=== PATIENT | female | born 1950 | race Caucasian/White ===

== ENCOUNTER 2019-10-01 10:52 | Emergency (ER) | payer MEDICARE ==
[~2019-10-01] VITALS: Ht 165.1 cm; Wt 102.0 kg
[2019-10-01 12:02] LABS: BASO # 0.1 x10^3/uL (0.0-0.2); BASO % 1 % (0-3); EOS # 0.1 x10^3/uL (0.0-0.7); EOS % 2 % (0-3); HEMOGLOBIN 12.1 g/dL (12.0-15.5); LYMPH # 2.3 x10^3/uL (1.0-4.8); LYMPH % 30 % (24-48); MEAN CORPUSCULAR HEMOGLOBIN 29 pg (25-35); MEAN CORPUSCULAR HGB CONC 34 g/dL (31-37); MEAN CORPUSCULAR VOLUME 88 fL (79-100); MONO # 0.6 x10^3/uL (0.0-1.1); MONO % 8 % (0-9); NEUT # 4.5 x10^3/uL (1.8-7.7); NEUT % 59 % (31-73); PLATELET COUNT 292 x10^3/uL (140-400); RED CELL DISTRIBUTION WIDTH 14.4 % (11.5-14.5); WHITE BLOOD COUNT 7.6 x10^3/uL (4.0-11.0)
[2019-10-01 12:09] LABS: CALCIUM 9.1 mg/dL (8.5-10.1); CREATININE 0.8 mg/dL (0.6-1.0); GFR 70.9
[2019-10-01 12:16] LABS: ALBUMIN 3.4 g/dL (3.4-5.0); ALBUMIN/GLOBULIN RATIO 0.9 (1.0-1.7); TOTAL BILIRUBIN 0.3 mg/dL (0.2-1.0)
--- NOTE | 2019-10-01 12:58 | PHYS DOC ---
Past Medical History Past Medical History: Hypertension Past Surgical History: Cholecystectomy Smoking Status: Never Smoker Alcohol Use: None General Adult EDM: Chief Complaint: FLANK PAIN HPI: HPI: Patient is a 68 year old female who presents to ER today for evaluation of left lower abdominal pain started 2 days ago. Patient said the pain is dull aching in nature, worse when she bent or twisted her lower back. Patient denies any back pain. Patient denies any fever, no nausea vomiting. Patient denies any urinary symptoms, no blood in her urine. Patient denies any fever. Review of Systems: Review of Systems: Constitutional: Denies fever or chills. [] Eyes: Denies change in visual acuity. [] HENT: Denies nasal congestion or sore throat. [] Respiratory: Denies cough or shortness of breath. [] Cardiovascular: Denies chest pain or edema. [] GI: Positive for left lower abdominal pain, no nausea vomiting. No diarrhea.] : Denies dysuria. [] Musculoskeletal: Denies back pain or joint pain. [] Integument: Denies rash. [] Neurologic: Denies headache, focal weakness or sensory changes. [] Endocrine: Denies polyuria or polydipsia. [] Lymphatic: Denies swollen glands. [] Psychiatric: Denies depression or anxiety. [] Heart Score: Risk Factors: Risk Factors: DM, Current or recent (<one month) smoker, HTN, HLP, family history of CAD, obesity. Risk Scores: Score 0 - 3: 2.5% MACE over next 6 weeks - Discharge Home Score 4 - 6: 20.3% MACE over next 6 weeks - Admit for Clinical Observation Score 7 - 10: 72.7% MACE over next 6 weeks - Early Invasive Strategies Allergies: Allergies: Allergies Coded Allergies Type Severity Reaction Last Updated Verified No Known Drug Allergies 10/01/19 No Physical Exam: PE: Constitutional: Well developed, well nourished, no acute distress, non-toxic appearance. [] HENT: Normocephalic, atraumatic, bilateral external ears normal, oropharynx moist, no oral exudates, nose normal. [] Eyes: PERRLA, EOMI, conjunctiva normal, no discharge. [] Neck: Normal range of motion, no tenderness, supple, no stridor. [] Cardiovascular:Heart rate regular rhythm, no murmur [] Lungs & Thorax: Bilateral breath sounds clear to auscultation [] Abdomen: Bowel sounds normal, soft, there is tenderness to palpation in left lower quadrant abdominal area, no rebound, no guarding., no masses, no pulsatile masses. [] Skin: Warm, dry, no erythema, no rash. [] Back: No tenderness, no CVA tenderness. [] Extremities: No tenderness, no cyanosis, no clubbing, ROM intact, no edema. [] Neurologic: Alert and oriented X 3, normal motor function, normal sensory funct ion, no focal deficits noted. [] Psychologic: Affect normal, judgement normal, mood normal. [] Current Patient Data: Labs: Laboratory Tests Test 10/01/19 11:50 White Blood Count 7.6 x10^3/uL (4.0-11.0) Red Blood Count 4.10 x10^6/uL (3.50-5.40) Hemoglobin 12.1 g/dL (12.0-15.5) Hematocrit 36.0 % (36.0-47.0) Mean Corpuscular Volume 88 fL (79-100) Mean Corpuscular Hemoglobin 29 pg (25-35) Mean Corpuscular Hemoglobin Concent 34 g/dL (31-37) Red Cell Distribution Width 14.4 % (11.5-14.5) Platelet Count 292 x10^3/uL (140-400) Neutrophils (%) (Auto) 59 % (31-73) Lymphocytes (%) (Auto) 30 % (24-48) Monocytes (%) (Auto) 8 % (0-9) Eosinophils (%) (Auto) 2 % (0-3) Basophils (%) (Auto) 1 % (0-3) Neutrophils # (Auto) 4.5 x10^3/uL (1.8-7.7) Lymphocytes # (Auto) 2.3 x10^3/uL (1.0-4.8) Monocytes # (Auto) 0.6 x10^3/uL (0.0-1.1) Eosinophils # (Auto) 0.1 x10^3/uL (0.0-0.7) Basophils # (Auto) 0.1 x10^3/uL (0.0-0.2) Sodium Level 138 mmol/L (136-145) Potassium Level 4.0 mmol/L (3.5-5.1) Chloride Level 102 mmol/L (98-107) Carbon Dioxide Level 26 mmol/L (21-32) Anion Gap 10 (6-14) Blood Urea Nitrogen 19 mg/dL (7-20) Creatinine 0.8 mg/dL (0.6-1.0) Estimated GFR (Cockcroft-Gault) 70.9 BUN/Creatinine Ratio 24 (6-20) H Glucose Level 125 mg/dL (70-99) H Calcium Level 9.1 mg/dL (8.5-10.1) Total Bilirubin 0.3 mg/dL (0.2-1.0) Aspartate Amino Transferase (AST) 18 U/L (15-37) Alanine Aminotransferase (ALT) 26 U/L (14-59) Alkaline Phosphatase 53 U/L (46-116) Total Protein 7.0 g/dL (6.4-8.2) Albumin 3.4 g/dL (3.4-5.0) Albumin/Globulin Ratio 0.9 (1.0-1.7) L Laboratory Tests 10/01/19 11:50 Laboratory Tests 10/01/19 11:50 Vital Signs: Vital Signs Date Time Temp Pulse Resp B/P (MAP) Pulse Ox O2 Delivery O2 Flow Rate FiO2 10/01/19 11:05 98.1 87 16 175/77 (109) 97 Room Air 98.1 EKG: EKG: [] Radiology/Procedures: Radiology/Procedures: [][facility] [address] [place] [address] IMAGING REPORT Signed PATIENT: RIZWANA RODRIGEZ ACCOUNT: [id number] : 1950 LOCATION: ER AGE: 68 SEX: F EXAM STATUS: REG ER ORD. PHYSICIAN: SUNITA CORRIGAN DO REASON: left lower abdominal pain PROCEDURE: CT ABD PELV W/ IV CONTRST ONLY CT abdomen and pelvis with contrast History: Left lower abdominal pain Technique: After the administration of intravenous contrast, CT imaging was performed of the abdomen and pelvis. No oral contrast was given as per request. Multiplanar images are reviewed. Exposure: One or more of the following individualized dose reduction techniques were utilized for this examination: 1. Automated exposure control 2. Adjustment of the mA and/or kV according to patient size 3. Use of iterative reconstruction technique. Comparison: None Findings: There is a 0.5 cm noncalcified nodule of the right lung base in the right lower lobe. There is no significant abnormality of the spleen or pancreas. There is no adrenal nodularity. Both kidneys enhance without hydronephrosis. There is somewhat lobulated contour of the left kidney. There is a hypodense lesion of the right lobe of liver about 1 cm image 46 series 9, density measurements about 22 Hounsfield units indeterminate for simple cyst. There is also small hypodense lesion of the left lobe of liver about 0.7 cm, density measurements about 20 Hounsfield units. There is also another tiny hypodense lesion of the left lobe of the liver about 0.4 cm too small to accurately characterize. There has been cholecystectomy. There is multilevel thoracolumbar degenerative disc disease also multilevel lumbar facet degenerative change. There is degree of lateral recess stenosis most notable of the lumbar spine at L3-4 and L2-3. There is tiny fat-containing umbilical hernia, no internal bowel. Accurate evaluation of bowel is limited without oral contrast. There is moderate to severe diverticulosis of the sigmoid colon and to lesser degree of the remainder of the colon. There is mild hazy and strandy change near the distal descending and proximal sigmoid colon, no abscess or free air or significant free fluid identified. Small bowel is not significantly dilated. Impression: 1. There is colonic diverticulosis greatest of the descending and sigmoid colon, mild inflammatory change near the distal descending and proximal sigmoid colon likely due to diverticulitis. 2. There are a few small hypodense foci of the liver indeterminate for simple cysts, somewhat difficult to further accurately characterize given relatively small size. 3. There is a small right lower lobe pulmonary nodule. If there are increased risk factors for neoplasm, optional 12 month follow-up of this nodule could be performed as per revised Fleischner guidelines, otherwise no additional follow-up needed if low risk factors. It should be noted the entirety of the lungs were not evaluated, consider dedicated nonemergent chest CT if there are increased risk factors for neoplasm to fully evaluate for nodules. Electronically signed by: Nito Godoy MD (10/01/2019 2:02 PM) [id number] DICTATED and SIGNED BY: NITO GODOY MD DATE: 10/01/19 1400 Course & Med Decision Making: Course & Med Decision Making Pertinent Labs and Imaging studies reviewed. (See chart for details) Patient is a 68-year-old female who was evaluated in the ED today due to left lower abdominal pain, CT scan her abdomen pelvic show no Diverticulitis. Patient was able to tolerate p.o. in ED, she will be discharged home with a combination of Cipro and Flagyl for infection. She will need to follow-up with her doctor for referral to GI specialist for follow-up colonoscopy after infection treated. Patient is amenable to plan of care. Dragon Disclaimer: Dragon Disclaimer: This electronic medical record was generated, in whole or in part, using a voice recognition dictation system. Departure Departure Impression: Primary Impression: Diverticulitis Disposition: 01 HOME, SELF-CARE Condition: STABLE Referrals: RYANN CAMERON MD (PCP) PLEASE FOLLOW UP WITH YOUR DOCTOR FOR A REFERRAL TO GI SPECIALIST FOR COLONOSCOPY. Patient Instructions: Diverticulitis Scripts Metronidazole (FLAGYL) 500 Mg Tablet 500 MG PO TID for 10 Days, #30 TAB Prov: SUNITA CORRIGAN DO 10/01/19 Ciprofloxacin Hcl (CIPRO) 500 Mg Tablet 1 TAB PO BID for 10 Days, #20 TAB 0 Refills Prov: SUNITA CORRIGAN DO 10/01/19 SUNITA CORRIGAN DO October 01, 2019 12:58
[2019-10-01] MEDS ORDERED: IOHEXOL 300 MG/ML 100ML VIAL. IV ONE (13:15)
[2019-10-01] MEDS ORDERED: CONTRAST GIVEN. MC PRN (13:15)
[2019-10-01 13:49] LABS: BILIRUBIN,URINE NEGATIVE (NEG); CLARITY,URINE CLEAR; NITRITE,URINE NEGATIVE (NEG); PH,URINE 5.5 (<5.0-8.0); PROTEIN,URINE NEGATIVE (NEG-TRACE); UROBILINOGEN,URINE 0.2 mg/dL (0.2 mg/dL)
[2019-10-01 13:53] LABS: COLOR,URINE YELLOW
[2019-10-01 13:55] LABS: BACTERIA,URINE 0 /HPF (0-FEW); RBC,URINE 0 /HPF (0-2); SQUAMOUS EPITHELIAL CELL,UR MOD /LPF; WBC,URINE RARE /HPF (0-4)
--- NOTE | 2019-10-01 14:05 | RAD ---
CT abdomen and pelvis with contrast History: Left lower abdominal pain Technique: After the administration of intravenous contrast, CT imaging was performed of the abdomen and pelvis. No oral contrast was given as per request. Multiplanar images are reviewed. Exposure: One or more of the following individualized dose reduction techniques were utilized for this examination: 1. Automated exposure control 2. Adjustment of the mA and/or kV according to patient size 3. Use of iterative reconstruction technique. Comparison: None Findings: There is a 0.5 cm noncalcified nodule of the right lung base in the right lower lobe. There is no significant abnormality of the spleen or pancreas. There is no adrenal nodularity. Both kidneys enhance without hydronephrosis. There is somewhat lobulated contour of the left kidney. There is a hypodense lesion of the right lobe of liver about 1 cm image 46 series 9, density measurements about 22 Hounsfield units indeterminate for simple cyst. There is also small hypodense lesion of the left lobe of liver about 0.7 cm, density measurements about 20 Hounsfield units. There is also another tiny hypodense lesion of the left lobe of the liver about 0.4 cm too small to accurately characterize. There has been cholecystectomy. There is multilevel thoracolumbar degenerative disc disease also multilevel lumbar facet degenerative change. There is degree of lateral recess stenosis most notable of the lumbar spine at L3-4 and L2-3. There is tiny fat-containing umbilical hernia, no internal bowel. Accurate evaluation of bowel is limited without oral contrast. There is moderate to severe diverticulosis of the sigmoid colon and to lesser degree of the remainder of the colon. There is mild hazy and strandy change near the distal descending and proximal sigmoid colon, no abscess or free air or significant free fluid identified. Small bowel is not significantly dilated. Impression: 1. There is colonic diverticulosis greatest of the descending and sigmoid colon, mild inflammatory change near the distal descending and proximal sigmoid colon likely due to diverticulitis. 2. There are a few small hypodense foci of the liver indeterminate for simple cysts, somewhat difficult to further accurately characterize given relatively small size. 3. There is a small right lower lobe pulmonary nodule. If there are increased risk factors for neoplasm, optional 12 month follow-up of this nodule could be performed as per revised Fleischner guidelines, otherwise no additional follow-up needed if low risk factors. It should be noted the entirety of the lungs were not evaluated, consider dedicated nonemergent chest CT if there are increased risk factors for neoplasm to fully evaluate for nodules. Electronically signed by: Manny Live MD (10/01/2019 2:02 PM) [id number]
[2019-10-01] MEDS ORDERED: metroNIDAZOLE 500 MG TABLET PO ONE (14:45)
[2019-10-01] MEDS ORDERED: CIPROFLOXACIN HCL 250 MG TABLET. PO ONE (14:45)
[2019-10-01 15:00] VITALS: BP 158/66
[2019-10-01] MEDS ORDERED: CIPR500T94 PO (15:05)
[2019-10-01] MEDS ORDERED: METR500T PO (15:05)
== END 2019-10-01 15:10 | disposition home or self-care (01) ==
LOC: ER 10:52
DX: K57.92 Diverticulitis of intestine, part unspecified, without perforation or abscess without bleeding (principal); K57.30 Diverticulosis of large intestine without perforation or abscess without bleeding; K42.9 Umbilical hernia without obstruction or gangrene; M51.34 Other intervertebral disc degeneration, thoracic region; M48.061 Spinal stenosis, lumbar region without neurogenic claudication; I10 Essential (primary) hypertension; Z90.49 Acquired absence of other specified parts of digestive tract
CPT/HCPCS: 36415; 74177; 80053; 81001; 85025; 87086; 99285; Q9967